=== PATIENT | female | born 1960 | race Caucasian/White ===

== ENCOUNTER → 2017-10-15 | Outpatient (CLI) | payer OTHER | END | disposition home or self-care (01) | LOC: KCIC 08:49 | DX: K44.9 Diaphragmatic hernia without obstruction or gangrene (principal) | CPT/HCPCS: 74220 ==

== ENCOUNTER → 2018-07-30 | Outpatient (CLI) | payer OTHER ==
[2014-10-18 02:08] VITALS: BP 129/64
--- NOTE | 2018-07-31 15:48 | KCIC ---
Bilateral digital screening mammograms: Reason for examination: Routine screening. Comparison is made to previous studies dated 07/27/2016 and 07/12/2015. Interpretation was made with the benefit of CAD. The skin and nipples show no abnormalities. No abnormal axillary lymph nodes are seen. The breast parenchyma shows scattered fibroglandular density. (Breast density: Category B.) There is a lobulated nodular consistent with one or 2 adjacent intramammary lymph nodes at the 2:00 position posteriorly in the left breast. There are no other dominant masses, suspicious calcifications or architectural distortions. Impression: No evidence of malignancy. Recommend routine screening. BI-RADS Category 2: Benign. "Our facility is accredited by the [employer] Mammography [employer]." This patient's information has been entered into a reminder system for the patient to be notified with the results of her examination and a target date for the next mammogram. Electronically signed by: Corry Kitchen MD (07/31/2018 3:44 PM) [id number]
== END | disposition home or self-care (01) ==
LOC: KCIC MAMMO 08:37
PROVIDERS: ATTEND Obstetrics & Gynecology
DX: Z12.31 Encounter for screening mammogram for malignant neoplasm of breast (principal)
CPT/HCPCS: 77067

== ENCOUNTER → 2019-08-12 | Outpatient (CLI) | payer OTHER ==
[2014-10-18 02:08] VITALS: BP 129/64
--- NOTE | 2019-08-12 09:52 | KCIC ---
Bilateral digital screening mammograms: Reason for examination: Routine screening. Comparison is made to previous studies dated 07/30/2018 and 07/27/2016. Interpretation was made with the benefit of CAD. The skin and nipples show no abnormalities. No abnormal axillary lymph nodes are seen. The breast parenchyma shows scattered fibroglandular density. (Breast density: Category B.) There continues to be a nodular density in the upper outer quadrant of the left breast which probably represents an intramammary lymph node and is stable. There are no new dominant masses, suspicious calcifications or architectural distortions. Impression: No evidence of malignancy. Recommend routine screening. BI-RADS Category 2: Benign. "Our facility is accredited by the [employer]ammography [employer]." This patient's information has been entered into a reminder system for the patient to be notified with the results of her examination and a target date for the next mammogram. Electronically signed by: Corry Kitchen MD (08/12/2019 9:49 AM) [email or web address]
== END | disposition home or self-care (01) ==
LOC: KCIC MAMMO 08:19
PROVIDERS: ATTEND Nurse Practitioner Gerontology
DX: Z12.31 Encounter for screening mammogram for malignant neoplasm of breast (principal)
CPT/HCPCS: 77067

== ENCOUNTER → 2020-10-27 | Outpatient (CLI) | payer OTHER ==
[2014-10-18 02:08] VITALS: BP 129/64
--- NOTE | 2020-10-27 15:58 | KCIC ---
Bilateral diagnostic digital mammograms: Reason for examination: Intermittent bilateral clear nipple discharge for 3 months. Comparison is made to previous studies dated back to 07/12/2015. Interpretation was made with the benefit of CAD. The skin and nipples show no abnormalities. No abnormal axillary lymph nodes are seen. The breast par enchyma shows scattered fibroglandular density. (Breast density: Category B.) There continues to be a nodule consistent with an intramammary lymph node at the 2:00 B position of the left breast. There i s also a subtle nodule probably an intramammary lymph node at the 9:00 position anteriorly in the rig ht breast which may represent an intramammary lymph node. There are no other dominant masses, suspici ous calcifications or architectural distortions. Impression: Intramammary lymph node at the 2:00 B position of the left breast. Possible faint nodule at the 9:00 position of the right breast. Ultrasound to follow. BI-RADS Category 0: Incomplete. Needs additional imaging evaluation. Bilateral breast ultrasound: Ultrasound examination was performed bilaterally of the breasts and axilla. In the right breast at the 9:00 position 3.5 cm from the nipple, there is a circumscribed 5.4 mm nodu le with some central echogenicity. This may represent a small intramammary lymph node and would corre spond with the area of mammographic concern. No other cystic or solid lesions are seen. There does ap pear to be some ductal ectasia in the retroareolar position. No abnormal appearing lymph nodes are se en in the right axilla. In the left breast, there are no discrete cystic or solid nodules. There does appear to be some ducta l ectasia in the retroareolar position. No abnormal appearing lymph nodes are seen in the axilla. IMPRESSION: Ductal ectasia bilaterally. Small 5.4 mm circumscribed nodule at the 9:00 position of the right breas t which may represent an intramammary lymph node. Recommend 6 month follow-up with ultrasound. BI-RADS Category 3: Probably Benign. "Our facility is accredited by the [employer] Mammography [employer]." This patient's information has been entered into a reminder system for the patient to be notified wit h the results of her examination and a target date for the next mammogram. Electronically signed by: Corry Kitchen MD (10/27/2020 3:55 PM) [id number]
== END ==
LOC: KCIC MAMMO 08:07
PROVIDERS: ATTEND Nurse Practitioner Gerontology
DX: R92.8 Other abnormal and inconclusive findings on diagnostic imaging of breast (principal); N60.42 Mammary duct ectasia of left breast; N60.41 Mammary duct ectasia of right breast; N63.11 Unspecified lump in the right breast, upper outer quadrant
CPT/HCPCS: 76641; 77066

== ENCOUNTER → 2021-05-25 | Outpatient (CLI) | payer OTHER ==
[2014-10-18 02:08] VITALS: BP 129/64
--- NOTE | 2021-05-25 13:34 | KCIC ---
Targeted right breast ultrasound INDICATION: Follow-up of probably benign findings in the right breast. COMPARISON: Ultrasound from 10/27/2020 mammogram from 10/27/2020 and 08/12/2019. The areas of interest on previous ultrasound were evaluated, 9:00 position retroareolar area. Axilla was imaged. Again seen is a small oval hypoechoic circumscribed mass in the 9:00 position, 3.5 cm from the nipple . This measures 6 mm none in maximum dimension and is unchanged October 2020 ultrasound. Benign intramamm ace lymph node correlation with mammography. There is unchanged duct ectasia within the nipple and just posterior to the nipple. No intraductal ma ss is seen. There is no left axillary adenopathy. IMPRESSION: There is an unchanged small benign intraparenchymal lymph node in the 9:00 position of th e right breast. Small area of duct ectasia within the nipple and immediately posterior to the nipple. The patient sta isaac her nipple discharge has resolved. If nipple discharge recurs and becomes bothersome, follow-up i maging could be performed. ASSESSMENT: BI-RADS 2. Benign findings. Recommendation: Routine screening mammograms with the next in October 2021. Results are given to the patient at time of exam. This patient's information has been entered into a reminder system for the patient to be notified with the results of her examination and a target date for the next mammogram. Electronically signed by: Emily Sweet MD (05/25/2021 1:32 PM) [email or web address]
== END ==
LOC: KCIC US 12:43
PROVIDERS: ATTEND Family Medicine
DX: N63.11 Unspecified lump in the right breast, upper outer quadrant (principal); N64.52 Nipple discharge
CPT/HCPCS: 76641

== ENCOUNTER → 2021-06-06 | Outpatient (CLI) | payer OTHER ==
[2014-10-18 02:08] VITALS: BP 129/64
--- NOTE | 2021-06-06 15:38 | RAD ---
US ABDOMEN COMPLETE History: Reason: epigastric pain / Spl. Instructions: / History: Comparison: None. Technique: Sonographic examination of the abdomen was performed and multiple grayscale and color Dopp ler static images were obtained. Findings: Liver demonstrates increased echogenicity. The liver measures 18.4 cm. Right hepatic cyst measures 3. 1 cm. Patent portal vein. No cholelithiasis, gallbladder wall thickening or pericholecystic fluid. Common bile duct measures 3 mm in diameter. Visualized pancreas unremarkable. The right kidney measures 10.2 x 4.5 x 4.1 cm. No hydronephrosis. The left kidney measures 12.1 x 4.2 x 4.9 cm. No hydronephrosis. The spleen measures 10.1 cm. IVC not well seen due to overlying structures. IMPRESSION: 1. Increased hepatic echotexture, may indicate steatosis. Electronically signed by: Rosendo Colón DO (06/06/2021 3:35 PM) [id number]
== END ==
LOC: US 07:29
PROVIDERS: ATTEND Physician Assistant Medical
DX: R10.13 Epigastric pain (principal); R79.89 Other specified abnormal findings of blood chemistry
CPT/HCPCS: 76700